=== PATIENT | male | born 1970 | race Two or more races ===

== ENCOUNTER 2017-06-13 16:10 | Emergency (ER) | payer OTHER ==
[~2017-06-13] VITALS: Ht 162.6 cm; Wt 78.0 kg
[2017-06-13 17:23] VITALS: BP 139/79
[2017-06-13] MEDS ORDERED: NAPROXEN 500 MG TABLET PO ONE (18:30)
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
== END 2017-06-13 18:01 | disposition left against medical advice (07) ==
LOC: ER 16:10
DX: Z53.21 Procedure and treatment not carried out due to patient leaving prior to being seen by health care provider (principal); M25.561 Pain in right knee; R22.41 Localized swelling, mass and lump, right lower limb
CPT/HCPCS: 99281